=== PATIENT | female | born 1990 | race Caucasian/White ===

== ENCOUNTER 2021-04-24 00:38 | Emergency (ER) | payer OTHER ==
[2021-04-24 02:06] VITALS: BP 130/80
[2021-04-24] MEDS ORDERED: IBUP-2070 PO (05:47)
[2021-04-24 06:13] VITALS: BP 124/75
== END 2021-04-24 06:16 | disposition home or self-care (01) ==
LOC: EDH 00:38
DX: S62.306A Unspecified fracture of fifth metacarpal bone, right hand, initial encounter for closed fracture (principal); W22.8XXA Striking against or struck by other objects, initial encounter; Y93.89 Activity, other specified; Y92.89 Other specified places as the place of occurrence of the external cause; Y99.0 Civilian activity done for income or pay
CPT/HCPCS: 29105; 29125; 73130